=== PATIENT | female | born 1985 | race African-American/Black ===

== ENCOUNTER 2024-01-07 14:36 | Emergency (ER) | payer BC, OTHER ==
[2024-01-07] MEDS ORDERED: Lidocaine 1% PF 5 ML VIAL ONE (14:49)
[2024-01-07] MEDS ORDERED: Acetaminophen 500 MG TAB ONE (14:57)
== END 2024-01-07 15:05 | disposition home or self-care (01) ==
LOC: BURERS 14:36
DX: K04.7 Periapical abscess without sinus (principal); E11.9 Type 2 diabetes mellitus without complications; I10 Essential (primary) hypertension; Z79.84 Long term (current) use of oral hypoglycemic drugs; Z79.899 Other long term (current) drug therapy
CPT/HCPCS: 41800; 99283